=== PATIENT | female | born 1965 | race Caucasian/White ===

== ENCOUNTER 2018-04-06 12:17 | Emergency (ER) | payer OTHER ==
[~2018-04-06] VITALS: Ht 167.6 cm; Wt 74.4 kg
[2018-04-06 12:35] VITALS: Ht 167.6 cm; Wt 74.4 kg
[2018-04-06 13:40] VITALS: BP 135/85
== END 2018-04-06 13:40 | disposition home or self-care (01) ==
LOC: ED 12:17
DX: S50.11XA Contusion of right forearm, initial encounter (principal); K21.9 Gastro-esophageal reflux disease without esophagitis; Z88.1 Allergy status to other antibiotic agents; Z88.8 Allergy status to other drugs, medicaments and biological substances; Z98.890 Other specified postprocedural states; W18.30XA Fall on same level, unspecified, initial encounter; Y93.89 Activity, other specified; Y92.89 Other specified places as the place of occurrence of the external cause; Y99.8 Other external cause status
CPT/HCPCS: Q0092